=== PATIENT | female | born 1980 | race Caucasian/White ===

== ENCOUNTER 2018-09-07 09:49 | Inpatient (IN) ==
--- NOTE | 2018-09-07 10:36 | ED ---
HPI General Chief complaint: Respiratory Symptoms Stated complaint: poss pneumonia/cough/congestion x 1 week Time Seen by Provider: 09/07/18 10:08 History of Present Illness HPI narrative: This patient complains of cough and congestion wheezing and shortness of breath. Duration is 1 week. Symptom severity is moderate. She denies history of lung disease and has never smoked. She does have schizoaffective disorder on antipsychotic. She denies alcohol or drug issues. She has a dry hacking cough. She felt like she had fever but did not take any temperatures. No alleviating factors. No exacerbating factors. Related Data Home Medications Medication Instructions Recorded Confirmed benztropine 2 mg PO HS 09/07/18 09/07/18 olanzapine 10 mg PO HS 09/07/18 09/07/18 Allergies Allergy/AdvReac Type Severity Reaction Status Date / Time No Known Allergies Allergy Verified 09/07/18 10:00 Review of Systems ROS: all other systems reviewed are negative [facility] Medical History Medical History Schizophrenia (Acute) Social History Social History Substance History: No History of Abuse Smoking Status: Never smoker How Often Do You Have a Drink Containing Alcohol: Never Recent Travel in [facility] within the Last 8 Weeks: No Recent Out of Country Travel within the Last 8 Weeks: No Exam Narrative Exam Narrative: GENERAL: Well-nourished, well-developed patient with cough and dyspnea . SKIN: Focused skin assessment reveals no rash and nodules. Skin is Warm and dry. HEAD: Atraumatic. Normocephalic. EYES: Pupils equal and round. No scleral icterus. No injection or drainage. ENT: No nasal bleeding or discharge. Mucous membranes pink and moist. NECK: Trachea midline. No JVD. CARDIOVASCULAR: Regular rate and rhythm. No murmur appreciated. Tachycardic 130 RESPIRATORY: No accessory muscle use. Some expiratory wheezing and rhonchi, diminished breath sounds in the bases. Breath sounds equal bilaterally. GASTROINTESTINAL: Abdomen soft, non-tender, nondistended. Hepatic and splenic margins not palpable. MUSCULOSKELETAL: No obvious deformities. No clubbing. No cyanosis. No edema. NEUROLOGICAL: Awake and alert. No obvious cranial nerve deficits. Motor grossly within normal limits. Normal speech. PSYCHIATRIC: Appropriate mood and affect; insight and judgment reasonable Course Initial Documented Vital Signs Temperature 98.3 F 09/07/18 10:05 Pulse Rate 130 H 09/07/18 10:05 Respiratory Rate 20 09/07/18 10:05 Blood Pressure 151/94 H 09/07/18 10:05 Pulse Oximetry 91 L 09/07/18 10:05 Last Documented Vital Signs Temperature 98.3 F 09/07/18 10:05 Pulse Rate 125 H 09/07/18 11:10 Respiratory Rate 24 09/07/18 11:10 Blood Pressure 152/81 H 09/07/18 11:10 Pulse Oximetry 94 L 09/07/18 11:10 Medical Decision Making MDM Narrative Medical decision making narrative: 37-year-old female who is short of breath and borderline hypoxic on room air and tachycardic. Giving a series of 3 nebulizer treatments. I have ordered x-ray and labs and placed her on nasal cannula. She had some slight improvement with those. Her chest x-ray shows a left base pneumonia. This does not match her symptoms. I gave her IV Rocephin and IV Zithromax. She has leukocytosis and hypokalemia. She is borderline hypoxic and will require admission for oxygen and IV antibiotics. I placed a call to the hospitalist to discuss. Medical Screen Exam Complete: Yes Emergency Medical Condition: Yes Differential Diagnosis Differential Diagnosis: Community-acquired pneumonia, bronchitis, asthma Medical Records Medical records reviewed: Yes I reviewed the patient's medical records. Lab Data Lab results reviewed: Yes I reviewed the patient's lab results. Result diagrams: 09/07/18 10:44 09/07/18 10:44 POC Results POC Urine Results Negative Lab Results 09/07/18 09/07/18 Range/Units 10:44 10:44 CBC w Diff Slide review pending WBC 15.3 H (4.0-11.0) th/mm3 RBC 4.45 (4.00-5.30) mil/mm3 Hgb 12.0 (11.6-15.3) gm/dL Hct 36.8 (35.0-46.0) % MCV 82.6 (80.0-100.0) fL MCH 26.9 L (27.0-34.0) pg MCHC 32.6 (32.0-36.0) % RDW 14.1 (11.6-17.2) % Plt Count 372 (150-450) th/mm3 MPV 7.8 (7.0-11.0) fL Neut % (Auto) 85.6 H (16.0-70.0) % Lymph % (Auto) 7.5 L (9.0-44.0) % [place] % (Auto) 6.4 (0.0-8.0) % Eos % (Auto) 0.0 (0.0-4.0) % Baso % (Auto) 0.5 (0.0-2.0) % Neut # (Auto) 13.0 H (1.8-7.7) th/mm3 Lymph # (Auto) 1.2 (1.0-4.8) th/mm3 [place] # (Auto) 1.0 H (0.0-0.9) th/mm3 Eos # (Auto) 0.0 (0.0-0.4) th/mm3 Baso # (Auto) 0.1 (0.0-0.2) th/mm3 WBC Differential . Diff Scan Auto diff confirmed Differential Comment . Platelet Estimate Normal (Normal) Platelet Morphology Normal (Normal) RBC Morphology Normal (Normal) Sodium 134 L (136-145) meq/L Potassium 3.1 L (3.5-5.1) meq/L Chloride 100 (98-107) meq/L Carbon Dioxide 23.5 (21.0-32.0) meq/L Anion Gap 11 (5-15) meq/L BUN 5 L (7-18) mg/dL Creatinine 0.68 (0.50-1.00) mg/dL Estimated GFR Greater than 89 (>89) mL/min Random Glucose 158 H (74-106) mg/dL Calcium 8.4 L (8.5-10.1) mg/dL Total Bilirubin 0.4 (0.2-1.0) mg/dL AST 59 H (15-37) U/L ALT 48 (10-53) U/L Alkaline Phosphatase 87 (45-117) U/L Total Protein 7.7 (6.4-8.2) g/dL Albumin 3.0 L (3.4-5.0) g/dL Imaging Data Attestation: I personally reviewed and interpreted this imaging study as follows : Radiologist's impression: Chest X-Ray 09/07/18 10:30 CONCLUSION: Left base pneumonia. ECG Data EKG Prior to Arrival: No Attestation: I personally reviewed and interpreted this ECG as follows: Prior ECG tracings: not available for review Discharge Plan Discharge Disposition Patient Disposition: ED Admit(ED Internal Use Only) Discharge Order Discharge Orders: ED Use Only Admit Order (Routine); Ordered 09/07/18 Ordered By: Gerry Gonzalez Discharge Details Diagnosis: Community acquired bacterial pneumonia, Hypoxia Physicians Team ED Provider: Gerry Gonzalez Primary Care Provider: Primary Care Physici,No Rxs /Orders / Referrals /Forms Prescriptions: No Action olanzapine 10 mg Tablet 10 mg PO HS RF: 0 benztropine 2 mg Tablet 2 mg PO HS RF: 0 Discharge Interventions Interventions: Vital Signs Last Done: 09/07/18 11:10 Status ED Status: Admitted Patient
[2018-09-07 10:55] LABS: Baso # (Auto) 0.1 th/mm3 (0.0-0.2); Baso % (Auto) 0.5 % (0.0-2.0); Hematocrit 36.8 % (35.0-46.0); Lymph # (Auto) 1.2 th/mm3 (1.0-4.8); Lymph % (Auto) 7.5 % (9.0-44.0); Mean Corpuscular HGB Conc 32.6 % (32.0-36.0); Mean Corpuscular Hemoglobin 26.9 pg (27.0-34.0); Mean Corpuscular Volume 82.6 fL (80.0-100.0); Mean Platelet Volume 7.8 fL (7.0-11.0); Mono % (Auto) 6.4 % (0.0-8.0); Neut % (Auto) 85.6 % (16.0-70.0); Platelet Count 372 th/mm3 (150-450); Red Blood Count 4.45 mil/mm3 (4.00-5.30); Red Cell Distribution Width 14.1 % (11.6-17.2); White Blood Count 15.3 th/mm3 (4.0-11.0)
[2018-09-07 11:03] LABS: Chloride 100 meq/L (98-107); Potassium 3.1 meq/L (3.5-5.1); Sodium 134 meq/L (136-145)
[2018-09-07 11:05] LABS: Calcium 8.4 mg/dL (8.5-10.1)
[2018-09-07 11:06] LABS: Anion Gap 11 meq/L (5-15); Blood Urea Nitrogen 5 mg/dL (7-18); Carbon Dioxide 23.5 meq/L (21.0-32.0); Glucose,Random 158 mg/dL (74-106)
[2018-09-07 11:09] LABS: Alanine Aminotransferase 48 U/L (10-53); Aspartate Aminotransferase 59 U/L (15-37); Glomerular Filtration Rate Greater Than 89 mL/min (>89)
[2018-09-07 11:11] LABS: Total Protein 7.7 g/dL (6.4-8.2)
[2018-09-07 11:12] LABS: Alkaline Phosphatase 87 U/L (45-117)
[2018-09-07 11:25] LABS: Platelet Estimate Normal (Normal); Platelet Morphology Normal (Normal); RBC Morphology Normal (Normal)
--- NOTE | 2018-09-07 11:34 | XR ---
EXAM DATE: 09/07/2018 11:31 AM EST AGE/SEX: 37 years / Female INDICATIONS: Patient presents with shortness of breath. CLINICAL DATA: This is the patient's initial encounter. Patient reports that signs and symptoms have been present for 1 day and indicates a pain score of 3/10. MEDICAL/SURGICAL HISTORY: None. None. COMPARISON: No prior exams available for comparison. FINDINGS: There is patchy consolidation at the left lung base with air bronchograms. Right lung appears clear. No large effusion demonstrated. No pneumothorax. Heart size within normal limits. CONCLUSION: Left base pneumonia. Electronically signed by: Heriberto Fenton MD Board Certified Radiologist 09/07/2018 11:33 AM EST
[2018-09-07] MEDS ORDERED: Azithromycin Inj 500 MG in Sodium Chlor 0.9% Inj 250 ML IV.SIG SCH (12:00)
[2018-09-07] MEDS ORDERED: Acetaminophen 325 MG Tablet PO PRN (12:10)
[2018-09-07] MEDS: Sod Chloride 0.9% Inj 1,000 ML IV.CONT SCH (12:47)
[2018-09-07] MEDS: Lactobacillus Acidophilus/L. Spores Tablet PO SCH ×3 (13:26→17:06)
--- NOTE | 2018-09-07 15:27 | P.HPIM ---
History of Present Illness Primary Care Physician: No Primary Care Physician Chief Complaint: Cough, Fevers History of Present Illness: Mrs. Cummings is a 37-year-old female. She has a past medical history of schizoaffective disorder but is otherwise healthy at baseline. And her family multiple people have been having upper respiratory tract infections. She reports that she obtain a similar thing. However, unlike her family members, she also developed a deep persistent cough with fevers, night sweats, and chills. This is persisting for 1 week now. She is coming to the hospital for further evaluation. Imaging shows she has a pneumonia at the left base. Tachycardia, leukocytosis, fever, and tachypnea are positive findings for sepsis. Patient meets septic criteria. Additionally she has borderline low hypoxia. Degree of pulmonary inflation could get worse with start of IV antibiotics so this warrants monitoring the patient further as her respiratory status could get worse. No other complaints today. Inpatient Certification Inpatient Certification: I certify that the inpatient services were ordered in accordance with Medicare regulations governing the order. This includes certification that hospital inpatient services are reasonable and necessary and in the case of services not specified as inpatient-only under 42 CFR 419.22(n), that they are appropriately provided as inpatient services in accordance to with the 2-midnight benchmark under 43 CFR 412.3(e) Estimated Total Length of Stay (Days): 3 Plans for Post Hospital Care: Home Review of Systems Constitutional: No fevers, no chills no night sweats, no fatigue, no weakness Eyes: No eye pain, no blurry vision, no loss of vision ENT: No sore throat, no ear pain, no rhinorrhea Cardiovascular: No chest pain, no tachycardia, no palpitations, no syncope Respiratory: No wheezing, cough, shortness of breath Gastrointestinal: No abdominal pain, no black tarry stools, no bright red blood per rectum, no vomiting, no diarrhea Musculoskeletal: No joint pain, no muscle cramps, no stiffness Integumentary: No rash, no ulcers, no drainage Neurologic: No sensory loss, no loss of motor function, no dizziness Psychiatric: No behavioral changes, no hallucinations, no suicidal ideations [facility] Medical History Medical History Schizophrenia (Acute) Family History Family History Other Osteoarthritis Social History Social History Substance History: No History of Abuse Second Hand Smoke Exposure: No Smoking Status: Never smoker How Often Do You Have a Drink Containing Alcohol: Never Recent Travel in [place] within the Last 8 Weeks: No Recent Out of Country Travel within the Last 8 Weeks: No Immunization History Tetanus Immunization: Unsure Hx Influenza Vaccine This Season: No Medications and Allergies Allergies Allergy/AdvReac Type Severity Reaction Status Date / Time No Known Allergies Allergy Verified 09/07/18 10:00 Home Medications Medication Instructions Recorded Confirmed Type benztropine 2 mg PO HS 09/07/18 09/07/18 History olanzapine 10 mg PO HS 09/07/18 09/07/18 History Active Medications: Active Medications Acetaminophen (Tylenol) 650 mg PO Q4H PRN PRN Reason: Temp > 100.4 Hydrocodone Bitart/Acetaminophen ([place] 10/325) 1 tab PO Q4H PRN PRN Reason: Pain 7 to 10 Hydrocodone Bitart/Acetaminophen ([place] 5/325) 1 tab PO Q4H PRN PRN Reason: Pain 3 to 6 Al Hydroxide/Mg Hydroxide (Milk Of Magnsebas Liq) 30 ml PO Q12H PRN PRN Reason: Mild Constipation Albuterol (Albuterol Neb (Prn)) 2.5 mg NEB Q4HR NEB PRN PRN Reason: Dyspnea or Wheezing Heparin Sodium (Porcine) (Heparin Inj) 5,000 units SQ Q12H KAYLI Azithromycin 500 mg/ Sodium (Chloride) 250 mls @ 250 mls/hr IV.SIG Q24H KAYLI Ceftriaxone Sodium 1,000 mg/ (Sodium Chloride) 100 mls @ 200 mls/hr IV.SIG Q24H KAYLI Sodium Chloride (Ns Inj) 1,000 mls @ 100 mls/hr IV.CONT .Q10H KAYLI Last Infusion: 09/07/18 13:10 Dose: 100 mls/hr Lactobacillus Acidophilus (Lactinex) 1 tab PO TID KAYLI Last Admin: 09/07/18 13:26 Dose: 1 tab Ondansetron HCl (Zofran Inj) 4 mg IV.PUSH Q6H PRN PRN Reason: NAUSEA OR VOMITING Sodium Chloride (Ns Flush) 2 ml IV.FLUSH BID KAYLI Sodium Chloride (Ns Flush) 2 ml IV.FLUSH PRN PRN PRN Reason: FLUSH AFTER USING IV ACCESS Physical Exam Vital signs: Vital Signs 09/07/18 10:05 09/07/18 10:30 09/07/18 10:46 Temperature 98.3 F Pulse Rate 130 H 122 H Respiratory Rate 20 22 Blood Pressure 151/94 H Pulse Oximetry 91 L 94 L 93 L 09/07/18 11:10 09/07/18 12:36 09/07/18 12:58 Temperature Pulse Rate 125 H 130 H 128 H Respiratory Rate 24 24 22 Blood Pressure 152/81 H 148/75 H 142/89 H Pulse Oximetry 94 L 95 95 Intake & Output 09/06/18 09/07/18 09/07/18 18:59 06:59 18:59 Intake Total 430 / 430 Balance 430 / 430 Weight 98.4 kg Intake: IV 430 / 430 NS Inj 1,000 ML @ 100 mls/hr IV 80 / 80 .CONT .Q10H KAYLI Rx#:[id number] Azithromycin Inj 500 MG In NS 250 / 250 Inj 250 ML @ 250 mls/hr IV.SIG Q24H KAYLI Rx#:[id number] Rocephin Inj 1,000 MG In NS Inj 100 / 100 100 ML @ 200 mls/hr IV.SIG ONCE ONE Rx#:[id number] Narrative: GENERAL: NAD, A&Ox3 HEAD: Normocephalic. NECK: Supple, trachea midline. No lymphadenopathy. EYES: No scleral icterus. No injection or drainage. CARDIOVASCULAR: Regular rate and rhythm without murmurs, gallops, or rubs. RESPIRATORY: Breath sounds equal bilaterally. No accessory muscle use. Crackles at bases bilaterally. GASTROINTESTINAL: Abdomen soft, non-tender, nondistended. MUSCULOSKELETAL: No cyanosis, or edema. SKIN: Warm and dry. NEURO: No focal neurological deficits. Results Labs CBC & Chem 7: 09/07/18 10:44 09/07/18 10:44 Imaging Impressions Chest X-Ray 09/07/18 10:30 CONCLUSION: Left base pneumonia. Caprini VTE Risk Assessment Caprini VTE Risk Assessment: Moderate/High Risk (score >= 2) Caprini Risk Assessment Model: Point Value = 1 Point Value = 2 Point Value = 3 Point Value = 5 Age 41-60 Minor surgery BMI > 25 kg/m2 Swollen legs Varicose veins or History of unexplained or recurrent spontaneous Oral contraceptives or hormone replacement Sepsis (< 1 month) Serious lung disease, including pneumonia (< 1 month) Abnormal pulmonary function Acute myocardial infarction Congestive heart failure (< 1 month) History of inflammatory bowel disease Medical patient at bed rest Age 61-74 Arthroscopic surgery Major open surgery (> 45 min) Laparoscopic surgery (> 45 min) Malignancy Confined to bed (> 72 hours) Immobilizing plaster cast Central venous access Age >= 75 History of VTE Family history of VTE Factor V Leiden Prothrombin [id number] Lupus anticoagulant Anticardiolipin antibodies Elevated serum homocysteine Heparin-induced thrombocytopenia Other congenital or acquired thrombophilia Stroke (< 1 month) Elective arthroplasty Hip, pelvis, or leg fracture Acute spinal cord injury (< 1 month) Prophylaxis Regimen: Total Risk Factor Score Risk Level Prophylaxis Regimen 0-1 Low Early ambulation 2 Moderate Order ONE of the following: *Sequential Compression Device (SCD) *Heparin 5000 units SQ BID 3-4 Higher Order ONE of the following medications: *Heparin 5000 units SQ TID *Enoxaparin/Lovenox 40 mg SQ daily (WT < 150 kg, CrCl > 30 mL/min) *Enoxaparin/Lovenox 30 mg SQ daily (WT < 150 kg, CrCl > 10-29 mL/min) *Enoxaparin/Lovenox 30 mg SQ BID (WT < 150 kg, CrCl > 30 mL/min) AND/OR *Sequential Compression Device (SCD) 5 or more Highest Order ONE of the following medications: *Heparin 5000 units SQ TID (Preferred with Epidurals) *Enoxaparin/Lovenox 40 mg SQ daily (WT < 150 kg, CrCl > 30 mL/min) *Enoxaparin/Lovenox 30 mg SQ daily (WT < 150 kg, CrCl > 10-29 mL/min) *Enoxaparin/Lovenox 30 mg SQ BID (WT < 150 kg, CrCl > 30 mL/min) AND *Sequential Compression Device (SCD) Assessment and Plan Plan 37-year-old female admitted secondary to community-acquired pneumonia with sepsis Sepsis Tachycardia Tachypnea Fever leukocytosis Continue to monitor CBC Follow vital signs closely Monitor on telemetry Follow for resolution of sepsis prior to discharge consideration Community-acquired pneumonia Left base pneumonia Rocephin Azithromycin Probiotics Oxygen as needed Breathing treatments as needed Schizoaffective disorder Continue baseline treatments DVT prophylaxis Heparin H&P: Quality VTE Deep Vein Thrombosis/Pulmonary Embolism Present on Admission: No
[2018-09-07] MEDS ORDERED: Benztropine 2 MG Tablet PO SCH (21:00)
[2018-09-07] MEDS ORDERED: OLANZapine 10 MG Tablet PO SCH (21:00)
[2018-09-07] MEDS: Heparin - SQ 10,000 UNITS/ML Vial SQ SCH (21:27)
[2018-09-08] MEDS: Sod Chloride 0.9% Inj 1,000 ML IV.CONT SCH (03:48)
[2018-09-08 06:25] LABS: Eos % (Auto) 0.2 % (0.0-4.0); Hematocrit 32.4 % (35.0-46.0); Hemoglobin 10.7 gm/dL (11.6-15.3); Lymph # (Auto) 1.4 th/mm3 (1.0-4.8); Lymph % (Auto) 18.4 % (9.0-44.0); Mean Corpuscular Hemoglobin 27.6 pg (27.0-34.0); Mean Corpuscular Volume 83.4 fL (80.0-100.0); Mean Platelet Volume 7.1 fL (7.0-11.0); Mono # (Auto) 0.6 th/mm3 (0.0-0.9); Mono % (Auto) 8.1 % (0.0-8.0); Neut # (Auto) 5.7 th/mm3 (1.8-7.7); Neut % (Auto) 73.3 % (16.0-70.0); Platelet Count 373 th/mm3 (150-450); Red Blood Count 3.88 mil/mm3 (4.00-5.30); Red Cell Distribution Width 13.9 % (11.6-17.2); White Blood Count 7.7 th/mm3 (4.0-11.0)
[2018-09-08 06:33] LABS: Chloride 106 meq/L (98-107); Potassium 3.3 meq/L (3.5-5.1); Sodium 140 meq/L (136-145)
[2018-09-08 06:38] LABS: Calcium 7.7 mg/dL (8.5-10.1)
[2018-09-08 06:39] LABS: Albumin 2.5 g/dL (3.4-5.0); Anion Gap 7 meq/L (5-15); Blood Urea Nitrogen 3 mg/dL (7-18); Carbon Dioxide 27.1 meq/L (21.0-32.0); Glucose,Random 112 mg/dL (74-106)
[2018-09-08 06:42] LABS: Alanine Aminotransferase 39 U/L (10-53); Aspartate Aminotransferase 52 U/L (15-37); Glomerular Filtration Rate Greater Than 89 mL/min (>89)
[2018-09-08 06:44] LABS: Total Protein 6.6 g/dL (6.4-8.2)
[2018-09-08 06:45] LABS: Alkaline Phosphatase 70 U/L (45-117)
[2018-09-08 07:52] VITALS: O2SAT 95
[2018-09-08] MEDS: Lactobacillus Acidophilus/L. Spores Tablet PO SCH ×2 (08:02→12:12)
[2018-09-08] MEDS: Heparin - SQ 10,000 UNITS/ML Vial SQ SCH (08:03)
--- NOTE | 2018-09-08 11:35 | P.PNIM ---
Subjective Interval history: Follow-up sepsis/community-acquired bacterial pneumonia September 08, 2018patient seen and examined, reported improvement of shortness of breath. Currently afebrile. Taking p.o. without any compression nausea and vomiting. Looking forward going home today. Physical Exam Vital signs: Vital Signs 09/07/18 12:36 09/07/18 12:58 09/07/18 16:00 Temperature 102.3 F H Pulse Rate 130 H 128 H 118 H Respiratory Rate 24 22 20 Blood Pressure 148/75 H 142/89 H 132/58 L Pulse Oximetry 95 95 93 L 09/07/18 19:00 09/07/18 20:00 09/07/18 22:20 Temperature 97.5 F L 98.4 F Pulse Rate 109 H 112 H Respiratory Rate 16 20 Blood Pressure 120/56 L Pulse Oximetry 92 L 92 L 09/08/18 00:00 09/08/18 04:00 09/08/18 07:51 Temperature 99.9 F H 98.7 F Pulse Rate 127 H 97 H Respiratory Rate 18 18 Blood Pressure 141/63 H 140/74 Pulse Oximetry 92 L 94 L 95 09/08/18 07:54 09/08/18 08:00 Temperature 97.1 F L Pulse Rate 105 H 110 H Respiratory Rate 22 Blood Pressure 124/58 L Pulse Oximetry 95 Intake & Output 09/07/18 09/08/18 09/08/18 18:59 06:59 18:59 Intake Total 630 / 630 1040 / 1040 480 / 480 Output Total 550 / 550 400 / 400 Balance 630 / 630 490 / 490 80 / 80 Weight 98.4 kg 106.1 kg Intake: IV 430 / 430 920 / 920 NS Inj 1,000 ML @ 100 mls/hr IV 80 / 80 920 / 920 .CONT .Q10H KAYLI Rx#:[id number] Azithromycin Inj 500 MG In NS 250 / 250 Inj 250 ML @ 250 mls/hr IV.SIG Q24H KAYLI Rx#:[id number] Rocephin Inj 1,000 MG In NS Inj 100 / 100 100 ML @ 200 mls/hr IV.SIG ONCE ONE Rx#:[id number] Oral 200 / 200 120 / 120 480 / 480 Output: Urine 550 / 550 400 / 400 Other: # Voids 2 Date of Last Bowel Movement 09/08/18 Narrative: GENERAL: NAD, A&Ox3 HEAD: Normocephalic. NECK: Supple, trachea midline. No lymphadenopathy. EYES: No scleral icterus. No injection or drainage. CARDIOVASCULAR: Regular rate and rhythm without murmurs, gallops, or rubs. RESPIRATORY: Breath sounds equal bilaterally. No accessory muscle use. Crackles at bases bilaterally. GASTROINTESTINAL: Abdomen soft, non-tender, nondistended. MUSCULOSKELETAL: No cyanosis, or edema. SKIN: Warm and dry. NEURO: No focal neurological deficits. Results Labs CBC & Chem 7: 09/08/18 05:45 09/08/18 05:45 Imaging Imaging: Impressions Chest X-Ray 09/07/18 10:30 CONCLUSION: Left base pneumonia. Assessment and Plan Plan 37-year-old female with Sepsis-secondary to community-acquired bacterial pneumonia. Now resolved. Currently on IV Rocephin and azithromycin. Culture remain negative. Community-acquired bacterial pneumonia Left base pneumonia Currently on Rocephin and azithromycin, will switch to p.o. azithromycin Oxygen as needed Breathing treatments as needed Schizoaffective disorder Continue baseline treatments DVT prophylaxis Heparin Progress Note: Quality VTE Deep Vein Thrombosis/Pulmonary Embolism Present on Admission: No
--- NOTE | 2018-09-08 11:38 | P.DS ---
DS: Providers Date of admission: 09/07/18 11:43 Primary care physician: No Primary Care Physician Brief History from admission: Mrs. Cummings is a 37-year-old female. She has a past medical history of schizoaffective disorder but is otherwise healthy at baseline. And her family multiple people have been having upper respiratory tract infections. She reports that she obtain a similar thing. However, unlike her family members, she also developed a deep persistent cough with fevers, night sweats, and chills. This is persisting for 1 week now. She is coming to the hospital for further evaluation. Imaging shows she has a pneumonia at the left base. Tachycardia, leukocytosis, fever, and tachypnea are positive findings for sepsis. Patient meets septic criteria. Additionally she has borderline low hypoxia. Degree of pulmonary inflation could get worse with start of IV antibiotics so this warrants monitoring the patient further as her respiratory status could get worse. No other complaints today. DS: Summary Patient admitted secondary to sepsis due to community-acquired bacterial pneumonia for which she was started on IV antibiotics including Rocephin and azithromycin with monitoring of cultures. Sepsis resolved and patient conditions improved. She will be discharged home on p.o. azithromycin 500 mg daily times 5 days. She was continued treatment for other chronic medical conditions. DVT prophylaxis were provided. Time Spent with Patient Total time spent providing and/or coordinating discharge services: Less than 30 minutes Quality: VTE Deep Vein Thrombosis/Pulmonary Embolism Present on Admission: No Exam Narrative Exam Narrative: GENERAL: NAD SKIN: Warm and dry. HEAD: Atraumatic. Normocephalic. EYES: Pupils equal and round. No scleral icterus. No injection or drainage. ENT: No nasal bleeding or discharge. Mucous membranes pink and moist. NECK: Trachea midline. No JVD. CARDIOVASCULAR: Regular rate and rhythm. RESPIRATORY: No accessory muscle use. Clear to auscultation. Breath sounds equal bilaterally. GASTROINTESTINAL: Abdomen soft, non-tender, nondistended. Hepatic and splenic margins not palpable. MUSCULOSKELETAL: Extremities without clubbing, cyanosis, or edema. No obvious deformities. NEUROLOGICAL: Awake and alert. No obvious cranial nerve deficits. Motor grossly within normal limits. Five out of 5 muscle strength in the arms and legs. Normal speech. PSYCHIATRIC: Appropriate mood and affect; insight and judgment normal. Results Procedures completed during hospitalization: None Labs on day of discharge: Labs from last 24 hours 09/08/18 09/08/18 05:45 05:45 CBC w Diff Auto diff final WBC 7.7 RBC 3.88 L Hgb 10.7 L Hct 32.4 L MCV 83.4 MCH 27.6 MCHC 33.0 RDW 13.9 Plt Count 373 MPV 7.1 Neut % (Auto) 73.3 H Lymph % (Auto) 18.4 [place] % (Auto) 8.1 H Eos % (Auto) 0.2 Baso % (Auto) 0.0 Neut # (Auto) 5.7 Lymph # (Auto) 1.4 [place] # (Auto) 0.6 Eos # (Auto) 0.0 Baso # (Auto) 0.0 WBC Differential . Differential Comment . Sodium 140 Potassium 3.3 L Chloride 106 Carbon Dioxide 27.1 Anion Gap 7 BUN 3 L Creatinine 0.61 Estimated GFR Greater than 89 Random Glucose 112 H Calcium 7.7 L Total Bilirubin 0.4 AST 52 H ALT 39 Alkaline Phosphatase 70 Total Protein 6.6 D Albumin 2.5 L Impressions ITS Impressions Chest X-Ray 09/07/18 10:30 CONCLUSION: Left base pneumonia. Discharge Plan Discharge Disposition Patient Disposition: Discharge Home Discharge Order Discharge Orders: Discharge Order (Routine); Ordered 09/08/18 Ordered By: Juan Daniel Brantley Physicians Team ED Provider: Gerry Gonzalez Primary Care Provider: Primary Ericka Harmon Attending Provider: Juan Daniel Brantley Rxs /Orders / Referrals /Forms Prescriptions: New azithromycin 500 mg tablet 500 mg PO DAILY 5 Days Qty: 5 RF: 0 Continue olanzapine 10 mg Tablet 10 mg PO HS RF: 0 benztropine 2 mg Tablet 2 mg PO HS RF: 0 Referrals: Ted Abdul MD [Family Provider] - See Instructions ( Please call the physician's office to book your f/u apt when office is open, call [phone]) Primary Care Ericka Reyes [Primary Care Provider] - See Instructions ( Please call the physician's office to book f/u apt call dr abdul at [phone]) Status ED Status: Left Department
[2018-09-08] MEDS ORDERED: Azithromycin Inj 500 MG in Sodium Chlor 0.9% Inj 250 ML IV.SIG SCH (13:00)
[2018-09-08 13:18] VITALS: BP 127/59; PULSE 97; RESP 21; TEMP 97.8
--- NOTE | 2018-09-08 16:57 | ECG ---
Date Performed: 09/07/2018 Time Performed: 10:39:17 PTAGE: 37 years EKG: SINUS TACHYCARDIA Since the previous tracing, no significant change noted ABNORMAL RHYTHM E CG PREVIOUS TRACING : 07/25/2005 22.01 DOCTOR: Yaniv Gutierrez Interpretating Date/Time 09/08/2018 16:56:07
== END 2018-09-08 13:20 | disposition home or self-care (01) | DRG 871 ==
LOC: PHED 09:49 → PHEDA 11:43 → PH3 13:12
PROVIDERS: ADMIT Hospitalist; ATTEND Hospitalist
CPT/HCPCS: 71010; 71045; 80053; 84703; 85025; 93005; 94640; 94664; 94665; 99285; J0456; J0696; J1644; J7030; J7050